=== PATIENT | male | born 1955 | race Caucasian/White ===

== ENCOUNTER → 2024-05-26 13:45 | Outpatient (REF) | payer MEDICARE, OTHER, SELFPAY | LOC: RAD 13:45 | PROVIDERS: ATTENDING PHYSICIAN Nurse Practitioner Adult Health; FAMILY PHYSICIAN Family Medicine; REFERRING PHYSICIAN Internal Medicine Pulmonary Disease | DX: J44.9 Chronic obstructive pulmonary disease, unspecified (principal) | CPT/HCPCS: 71250 ==

== ENCOUNTER → 2024-06-28 13:02 | Outpatient (REF) | payer MEDICARE, OTHER, SELFPAY | LOC: RSP 13:02 | PROVIDERS: ATTENDING PHYSICIAN Internal Medicine Pulmonary Disease; FAMILY PHYSICIAN Family Medicine | DX: J44.9 Chronic obstructive pulmonary disease, unspecified (principal) | CPT/HCPCS: 94727; 94729; 88738; 94060 ==

== ENCOUNTER → 2025-02-27 15:56 | Outpatient (REF) | payer MEDICARE, OTHER, SELFPAY | LOC: HWRAD 15:56 | PROVIDERS: ATTENDING PHYSICIAN Student in an Organized Health Care Education/Training Program; FAMILY PHYSICIAN Family Medicine | DX: M25.521 Pain in right elbow (principal) | CPT/HCPCS: 73080 ==

== ENCOUNTER 2025-02-28 13:44 | Emergency (ER) | payer MEDICARE, OTHER, SELFPAY ==
[2025-02-28 13:47] VITALS: BP 131/57
[2025-02-28 13:57] VITALS: BMI 31.6
--- NOTE | 2025-02-28 13:58 | ED.GENMED ---
History of Present Illness
General
Chief Complaint: Skin Problem
Time Seen by Provider: 02/28/25 13:58
History of Present Illness
History of Present Illness:
TIME OF INITIAL ENCOUNTER: 2 PM
HPI: The patient was seen by [facility] [place] yesterday, Dr. Vishal Esquivel due to right elbow pain and redness. He reports having extensive blood work done yesterday. He states he had gout here (as he points to the left forearm) in
the past. states that the x-ray that was obtained yesterday was unremarkable other than some edema but no bony abnormality. There was no traumatic issue. He started taking Bactrim last night.
EXAM:
GENERAL: Well appearing in no distress, he is afebrile
HEENT: Moist oral mucosa
NEUROLOGIC: Excellent strength all extremities, no obvious coordination deficits
PSYCHIATRIC: Appropriate mental status, normal insight and judgement
EXTREMITIES: There is erythema and warmth over the posterior aspect of the right elbow, there is no significant fluid collection at the right olecranon bursa, there is decreased active range of motion into flexion due to pain
SKIN: As above
NUMBER AND COMPLEXITY OF PROBLEMS ADDRESSED AT THE ENCOUNTER
� Chronic conditions affecting care: Asthma, COPD, emphysema, A-fib, CHF, CAD/[place], had VT ablation in April 2016, anxiety/depression
� Acute Exacerbation and/or Progression of Chronic Illness: This is an acute problem
� Differential Diagnosis includes: Olecranon bursitis, cellulitis, gout, very low suspicion for infected joint
AMOUNT AND/OR COMPLEXITY OF DATA TO BE REVIEWED AND ANALYZED
� I performed an independent evaluation of and my interpretation is:
EKG:
CT:
X-rays:
Laboratory Studies: White count 9.5, hemoglobin 12.4, chemistries unremarkable however the BUN is noted to be 39, C-reactive protein slightly elevated at 39
Other:
� Review of other/old records: I reviewed records, the patient had PFTs last year
� Clinical information was obtained by an independent historian: I spoke to at bedside
� Prescriptions/Medications Considered but not given:
� Further testing considered but not performed:
RISK OF COMPLICATIONS AND/OR MORBIDITY OR MORTALITY OF PATIENT MANAGEMENT
� Social determinants of health affecting care: Lives at home
� Discussion with other providers: We called Dr. Esquivel's office to try to get records from yesterday�we are told that the most recent labs they have access to her back in December of this year .
� Escalation of care including admission/observation vs risk of discharge considered: The patient was already started on Bactrim. He has rather extensive cellulitic changes over the posterior aspect of the right upper
extremity/elbow. Will give IV Ancef 2 g.
ANY OTHER UPDATES:
3:45 PM: I reassessed the patient. He appears comfortable. Will add Keflex to the Bactrim that he is already on. His white blood cell count is reassuring. He is afebrile here. Encouraged to return here if worse or if no improvement in 48 hours
of antibiotics.
Past History
Past History
ED Past Medical History: Arrthythmia (Atrial fibrillation, VT/VF), Asthma, CHF, COPD, HTN, Hypercholesterolemia, [place] (X2) and Other (Lower extremity edema, cardiomyopathy)
ED Past Surgical History: Cardiac (Ablation, Pacer/defib), Orthopedic (Left hip replacement) and Other (Hernia repair)
Social History
Tobacco: Former smoker
Alcohol: Occasional
Drug: None
Personal:
Living: with family
Family History
Family History: Other (No acute)
Phy Exam
Physical Exam
Physical Exam:
See HPI
Course
Orders/Labs/Results
Orders:
Orders
02/28/25 14:08
CeFAZolin 2 GRAM [Ancef] 2 grams in 10 ml IV NOW
02/28/25 14:40
Basic Metabolic Panel Urgent
CRP [C-Reactive Protein] Urgent
Complete Blood Count/With Diff Urgent
Abnormal Lab Results
02/28/25
14:40
RBC 3.88 L 10^6/uL
(4.70-6.10)
Hgb 12.4 L g/dL
(13.0-18.0)
Hct 36.8 L %
(39.0-52.0)
MCV 94.8 H fL
(80.0-94.0)
MCH 32.0 H pg
(27.0-31.0)
MPV 11.9 H fL
(7.4-10.4)
Absolute Monos (auto) 1.2 H 10^3/uL
(0.1-0.6)
Monocytes % 12.9 H %
(1.7-9.3)
BUN 39 H mg/dl
(9-20)
Glucose 105 H mg/dl
(70-99)
C-Reactive Protein 38.40 H mg/L
(0.0-10.00)
02/28/25 14:40
02/28/25 14:40
Vital Signs
Initial and Last Documented VS:
Initial Vital Signs
Temp Pulse Resp BP Pulse Ox
37.1 C 90 18 131/57 91
02/28/25 13:47 02/28/25 13:47 02/28/25 13:47 02/28/25 13:47 02/28/25 13:47
Last Documented Vital Signs
Temp Pulse Resp BP Pulse Ox
37.1 C 90 18 131/57 91
02/28/25 13:47 02/28/25 13:47 02/28/25 13:47 02/28/25 13:47 02/28/25 13:47
*Critical Care Note
Total Time (30-74mins, 75-104mins- exclusive of procedures): Not Applicable
ED Attending Note
-
Portions of this chart may have been created with voice recognition software.� Occasional wrong word or��sound alike� substitutions may have occurred due to the inherent limitations of voice recognition software.
Discharge Plan
Departure
Patient Disposition: Home (Routine Discharge)
Date of Disposition: 02/28/25
Time of Disposition: 15:45
Patient with high blood pressure during this ER visit?: Yes
Discharge Problem:
Cellulitis
Instructions: Cellulitis (Skin Infection), Adult (DC), BLOOD PRESSURE
Prescriptions:
New
cephalexin 500 mg tablet
500 mg PO QID Qty: 28 0RF
No Action
lactulose 10 GM/15 ML solution
15 ml PO DAILYPRN PRN (Reason: constipation)
formoterol fumarate [Perforomist] 20 MCG/2 ML solution for nebulization
20 mcg continuous nebulization DAILY@1700
Patient Comments:
combines with ipratropuim
citalopram 10 MG tablet
10 mg PO DAILY
coenzyme [id number] [Co Q-10 (with Vit E)] 1 EACH capsule
200 mg PO QPM
gabapentin [Neurontin] 600 MG tablet
600 mg PO TID@0800,1700,2200
clonazepam 0.5 MG tablet
0.5 mg PO HS
magnesium oxide 400 MG tablet
400 mg PO HS
budesonide 0.5 MG/2 ML suspension for nebulization
0.5 mg inhalation R BID@0800,1700
benazepril [Lotensin] 10 MG tablet
10 mg PO DAILY
cholecalciferol (vitamin D3) 1,000 UNITS tablet
1,000 units PO DAILY@1200
furosemide 40 MG tablet
40 mg PO DAILY
atorvastatin 40 MG tablet
40 mg PO HS
metoprolol succinate 25 MG tablet extended release 24 hr
25 mg PO DAILY@1700
Daliresp 500 MCG tablet
500 mcg PO DAILY
acetaminophen 325 MG tablet
650 mg PO Q4HPRN PRN (Reason: mild pain/PARKER/temp> 100.4F) 0RF
azithromycin 250 MG tablet
250 mg PO MOWEFR
fexofenadine [Carli] 180 MG tablet
180 mg PO DAILY
spironolactone 12.5 MG tablet
12.5 mg PO DAILY@1200
Anoro Ellipta 1 EACH blister with device
1 ea IH DAILY
guaifenesin [Mucus Relief ER] 600 MG tablet extended release 12hr
1,200 mg PO Q12 PRN (Reason: congestion)
oxycodone-acetaminophen 1 EACH tablet
1 ea PO Q6H PRN (Reason: PAIN)
Xarelto 20 MG tablet
20 mg PO DAILY@1200 Qty: 0 0RF
Rx Instructions:
HOLD post procedure- OK to resume on 02/27 in PM
Ventolin HFA
2 puff inhalation QID PRN (Reason: SOB)
iron
65 mg PO DAILY
Referrals:
Pierre Larsen MD [Family Provider] -
Activity Restrictions/Additional Instructions:
Your white blood cell count is normal at 9.5. I am treating you for cellulitis (infection of the tissue underneath the skin). You did not have any fluid at the olecranon bursa for me to drain currently. I did try to call for records from
yesterday however your primary care office did not have blood results. We gave 2 g of IV Ancef. You are currently on Bactrim (trimethoprim/sulfamethoxazole). I recommend that we add Keflex in addition to the Bactrim as they can treat different
bacteria. Return here if worse or other concerns. I am also you the patient for local orthopedist as well if you have ongoing concerns.
Interventions
Interventions:
*Risk Screen - Suicide Last Done: 02/28/25 13:47
*General Assessment Last Done: 02/28/25 13:47
*Neglect/Abuse Screening Last Done: 02/28/25 13:53
*ED COVID-19 Vaccine History Last Done: 02/28/25 13:53
ED-Skin Assessment Last Done: 02/28/25 13:53
Discharge Date and Time
Print Language: SYRIAC
[2025-02-28] MEDS: ANCEF 10 IV (14:40)
[2025-02-28 14:52] LABS: % Basophils 0.4 % (0-2); % Eosinophils 2.7 % (0-6); % Immature Granulocytes 0.2 % (0-0.5); % Lymphocytes 22.1 % (20.5-51.1); % Monocytes 12.9 % (1.7-9.3); % Neutrophils 61.7 % (42.2-75.2); Absolute Eosinophils 0.3 10^3/uL (0-0.7); Absolute Lymphocytes 2.1 10^3/uL (1.2-3.4); Absolute Monocytes 1.2 10^3/uL (0.1-0.6); Absolute Neutrophils 5.9 10^3/uL (1.4-6.5); Hematocrit 36.8 % (39.0-52.0); Hemoglobin 12.4 g/dL (13.0-18.0); Mean Corp Hgb Conc. 33.7 g/dL (33.0-37.0); Mean Corpuscular Volume 94.8 fL (80.0-94.0); Mean Platelet Volume 11.9 fL (7.4-10.4); Nucleated Red Blood Cells % 0 % (-); Platelet Count 153 10^3/uL (130-400); Red Blood Cell Count 3.88 10^6/uL (4.70-6.10); White Blood Cell Count 9.5 10^3/uL (4.8-10.8)
[2025-02-28 15:06] LABS: Blood Urea Nitrogen 39 mg/dl (9-20); Calcium 9.7 mg/dl (8.4-10.2); Carbon Dioxide 26 mmol/L (22-30); Chloride 99 mmol/L (98-107); Estimated Creatinine Clearance 72 ml/min; Glucose 105 mg/dl (70-99); Potassium 4.3 mmol/L (3.5-5.1); Sodium 136 mmol/L (135-145)
[2025-02-28 15:49] VITALS: BP 132/60
== END 2025-02-28 16:14 | disposition home or self-care (01) ==
LOC: EMR 13:44
PROVIDERS: EMERGENCY PHYSICIAN Emergency Medicine; FAMILY PHYSICIAN Family Medicine
DX: L03.113 Cellulitis of right upper limb (principal); E78.00 Pure hypercholesterolemia, unspecified; I11.0 Hypertensive heart disease with heart failure; I50.9 Heart failure, unspecified; I25.2 Old myocardial infarction; I42.9 Cardiomyopathy, unspecified; I48.91 Unspecified atrial fibrillation; Z87.891 Personal history of nicotine dependence
CPT/HCPCS: 96374; 99284; 80048; 85025; 86140

== ENCOUNTER → 2025-05-25 12:16 | Outpatient (REF) | payer MEDICARE, OTHER, SELFPAY | LOC: RSP 12:16 | PROVIDERS: ATTENDING PHYSICIAN Nurse Practitioner Family; FAMILY PHYSICIAN Family Medicine; REFERRING PHYSICIAN Internal Medicine Pulmonary Disease | DX: J44.9 Chronic obstructive pulmonary disease, unspecified (principal) | CPT/HCPCS: 71250; 88738; 94060; 94727; 94729 ==